=== PATIENT | male | born 1995 | race Caucasian/White ===

== ENCOUNTER 2018-05-09 21:00 | Emergency (ER) | payer BC ==
[2018-05-09] MEDS ORDERED: NS 1,000 ML IV ONE ×3 (21:30→22:33)
[2018-05-09] MEDS ORDERED: ONDANSETRON 4 MG/2 ML VIAL IVP ONE (21:30)
--- NOTE | 2018-05-09 21:42 | EDPHY ---
H & P Stated Complaint: diarrhea and vomiting Source: Patient, RN/MD Exam Limitations: No limitations - Personal History Current Tetanus/Diphtheria Vaccine: Unsure Current Tetanus Diphtheria and Acellular Pertussis (TDAP): Unsure - Medical/Surgical History Hx Asthma: No Hx Chronic Respiratory Disease: No Hx Diabetes: No Hx Cardiac Disease: No Hx Renal Disease: No Hx Cirrhosis: No Hx Alcoholism: No Hx HIV/AIDS: No Hx Splenectomy or Spleen Trauma: No Other PMH: denies - Social History Smoking Status: Never smoked Time Seen by Provider: 05/09/18 21:42 HPI/ROS: HPI: This is a 22-year-old male who presents with Chief Complaint: diarrhea and vomiting Location: GI Quality: Diarrhea and vomiting Duration: 1 day Signs and Symptoms: no fever,+ nausea, + vomiting, no hematemesis, no blood in stool, no abdominal bloating, + diarrhea, no back pain, no urinary symptoms, no testicular/groin pain, no indigestion, no chest pain, no shortness of breath Timing: Rapid onset, improving Severity: Moderate Context: Patient is a student at [employer] presents with sudden onset this afternoon at 4:00 p.m. Diarrhea followed by several episodes of vomiting. Patient complains of generalized abdominal cramping. Patient reports that he had nausea, vomiting, diarrhea for the last 3 hr. No primary care provider. No recent antibiotic use. No foreign travel. No concern for contaminated water ingestion. Modifying Factors: None Comment: ROS: A comprehensive 10 system review of systems is otherwise negative aside from elements mentioned in the history of present illness. MEDICAL/SURGICAL/SOCIAL HISTORY: Medical history: Generally healthy. Does not take any regular medications. Surgical history: Denies Social history: Nonsmoker. Family history noncontributory. CONSTITUTIONAL: Uncomfortable but nontoxic-appearing young adult white male, awake and alert, no obvious distress HEENT: Atraumatic and normocephalic, PERRL, EOMI. Nares patent; no rhinorrhea; no nasal mucosal edema. Tympanic membranes clear. Oropharynx clear, no exudate and moist pink mucosa. Airway patent. No lymphadenopathy. No meningismus. Cardiovascular: Normal S1/S2, regular rate, regular rhythm, without murmur rub or gallop. PULMONARY/CHEST: Symmetrical and nontender. Clear to auscultation bilaterally. Good air movement. No accessory muscle usage. ABDOMEN: Soft, nondistended, nontender, no rebound, no guarding, no peritoneal signs, no masses or organomegaly. No CVAT. Hyperactive bowel sounds heard x4 quadrants. EXTREMITIES: 2/2 pulses, strength 5/5, no deformities, no clubbing, no cyanosis or edema. NEUROLOGICAL: no focal neuro deficits. GCS 15. SKIN: Warm and dry, no erythema. no rash. Good capillary refill. (Randi Barton) Constitutional: Initial Vital Signs Temperature (C) 36.4 C 05/09/18 21:04 Heart Rate 97 05/09/18 21:04 Respiratory Rate 16 05/09/18 21:04 Blood Pressure 96/68 L 05/09/18 21:04 O2 Sat (%) 98 05/09/18 21:04 O2 Delivery Mode Room Air O2 (L/minute) 37.5 Allergies/Adverse Reactions: No Known Allergies Allergy (Unverified 05/09/18 21:10) Home Medications: [facility] Ondans[facility] O[facility] [Zofran Odt 4 mg 4 mg PO Q4 PRN #12 tab 05/09/18 (*)] Medical Decision Making ED Course/Re-evaluation: Vital signs reviewed and stable upon arrival. No systemic signs. IV access, laboratory studies ordered Patient given 3 L normal saline and IV Zofran 4 mg Laboratory studies reviewed and show WBC 20 K-with left shift, Creatinine of 1.4 ; consistent with dehydration. Potassium 4.2. Occult stool positive. 2310: Called by radiologist, DR. Briggs, who advised that CT abdomen and pelvis scan shows no signs of obstruction, diverticulitis, colitis, pancreatitis , appendicitis. Findings consistent with an enteritis. 2315: Reassessed patient who reports moderate relief of symptoms. Denies abdominal pain. Drinking liquids without difficulty. Repeat BNP level shows improvement. Creatinine 0.9 Given a prescription for promethazine and Zofran with supportive care. This patient was seen under the supervision of my secondary supervising physician. I evaluated care for this patient independently. Discussed this patient with Dr. Moraes who did not see the patient. (Randi Barton) I did not see this patient while he was in the emergency department. However his care is discussed with the PA while the patient was in the department. I agree with treatment plan and management (Adryan Stacy) Differential Diagnosis: Abdominal pain including but not limited to appendicitis, cholecystitis, gastritis and urinary tract infection. (Randi Barton) - Data Points Laboratory Results: Laboratory Results 05/09/18 21:25 05/09/18 21:25 Medications Given: Discontinued Medications Sodium Chloride (Ns) 1,000 mls @ 0 mls/hr IV EDNOW ONE; Wide Open PRN Reason: Protocol Stop: 05/09/18 21:31 Last Admin: 05/09/18 21:34 Dose: 1,000 mls Sodium Chloride (Ns) 1,000 mls @ 0 mls/hr IV EDNOW ONE; Wide Open PRN Reason: Protocol Stop: 05/09/18 21:52 Last Admin: 05/09/18 21:54 Dose: 1,000 mls Sodium Chloride (Ns) 1,000 mls @ 0 mls/hr IV EDNOW ONE; Wide Open PRN Reason: Protocol Stop: 05/09/18 22:34 Last Admin: 05/09/18 22:37 Dose: 1,000 mls Ondansetron HCl (Zofran) 4 mg IVP EDNOW ONE Stop: 05/09/18 21:31 Last Admin: 05/09/18 21:35 Dose: 4 mg Promethazine HCl (Phenergan 25 Mg Prepack #4) 1 btl TAKEHOME EDNOW ONE Stop: 05/09/18 23:20 Last Admin: 05/09/18 23:50 Dose: 1 btl Point of Care Test Results: Chemistry 05/09/18 23:35 POC Sodium 140 mEq/L mEq/L (135-145) POC Potassium 5.6 mEq/L H mEq/L (3.3-5.0) POC Chloride 108 mEq/L mEq/L (97-110) POC Total CO2 21 mEq/L L mEq/L (22-31) POC BUN 17 mg/dL mg/dL (7-23) POC Creatinine 0.9 mg/dL mg/dL (0.7-1.3) POC Glucose 104 mg/dL H mg/dL (70-100) ISTAT H&H 05/09/18 23:35 POC Hgb 16.0 gm/dL gm/dL (13.7-17.5) POC Hct 47 % % (40-51) Departure - Departure Disposition: Home, Routine, Self-Care Clinical Impression: Gastroenteritis Condition: Good Instructions: Promethazine (By mouth), Gastroenteritis (ED) Additional Instructions: Consume a minimum of 8-10 glasses of water or electrolyte fluid replacement drinks that include Gatorade, Powerade, Pedialyte. Eat a bland diet for the next 48 hours and then slowly advance as tolerated. Take Zofran 1 tab every 4 hours as needed for nausea, vomiting. Take promethazine 1 tab every 6 hr as needed for nausea, vomiting not relieved by Zofran. Return to the Emergency Room if symptoms do not resolve in the next 48-72 hours , you spike a fever > 102 F, or experience intractable abdominal pain/nausea/ vomiting. Referrals: [facility],. [Clinic] - As per Instructions Brenton Hightower MD [Medical Doctor] - Follow Up Only If Needed Stand Alone Forms: School Excuse Prescriptions: Ondansetron Odt [Zofran Odt 4 mg (*)] 4 mg PO Q4 PRN #12 tab PRN Reason: Nausea/Vomiting, Use 1st
[2018-05-09 21:49] LABS: PLATELET COUNT 321 10^3/uL (150-400)
[2018-05-09] MEDS ORDERED: IOPAMIDOL (ISOVUE-300) 100 ML BTL ONE (22:30)
[2018-05-09] MEDS ORDERED: PROMETHAZINE 25 MG PREPACK #4 BTL TAKEHOME ONE (23:19)
[2018-05-09 23:54] VITALS: BP 107/53
== END 2018-05-09 23:51 | disposition home or self-care (01) ==
DX: K52.9 Noninfective gastroenteritis and colitis, unspecified (principal); E86.9 Volume depletion, unspecified
CPT/HCPCS: 82435-PO; 82565-PO; 82947-PO; 84132-PO; 84295-PO; 84520-PO; 85014-ER; 96374; J2405; Q9967